=== PATIENT | male | born 1990 | race Two or more races ===

== ENCOUNTER 2022-02-24 20:15 | Emergency (ER) | payer SELFPAY ==
[~2022-02-24] VITALS: Ht 180.3 cm; Wt 82.7 kg
[2022-02-24] MEDS ORDERED: MORPHINE SULFATE 4 MG/ML INJ. IV PRN (20:30)
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
[2022-02-24] MEDS ORDERED: DIPHTH,PERTUSS(ACELL),TET TOX 0.5 ML DISP.SYRIN. VAX IM ONE (21:30)
[2022-02-24] MEDS ORDERED: CEPH500C PO (22:11)
[2022-02-24] MEDS ORDERED: CEPHALEXIN 250 MG CAPSULE. PO STA (22:11)
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
[2022-02-24] MEDS ORDERED: HYDR-2761 PO (22:15)
[2022-02-24 22:45] VITALS: BP 114/65
== END 2022-02-24 22:56 | disposition home or self-care (01) ==
LOC: ER 20:15
DX: S81.832A Puncture wound without foreign body, left lower leg, initial encounter (principal); W34.00XA Accidental discharge from unspecified firearms or gun, initial encounter; Y93.89 Activity, other specified; Y92.89 Other specified places as the place of occurrence of the external cause; Y99.8 Other external cause status
CPT/HCPCS: 73590; 90471; 90715; 96374; 99285; J2270